=== PATIENT | female | born 1950 | race Caucasian/White ===

== ENCOUNTER → 2016-08-21 | Outpatient (CLI) | payer OTHER ==
--- NOTE | 2016-08-21 12:35 | US ---
Left Leg Varicose Vein Ultrasound Indication: Status post ablation of the right great saphenous system 2013. Evaluate left leg. Technique: Left leg ultrasound was performed by the hazmat cdl driver. FINDINGS: The great saphenous vein measures 3.6 mm proximally, 5.5 mm at the knee, 4.8 mm at the mid calf. Reflux is seen in the greater saphenous vein at the knee, down to the mid calf, measuring 3 sec onds. ALT is not present. The lesser saphenous vein is normal in size and does not reflux. IMPRESSION: 1. 3 seconds reflux seen in the great saphenous vein from knee to mid calf. 2. Sizes of the great saphenous vein as above.
== END ==
LOC: FIMAGING 07:19
PROVIDERS: ATTEND Surgery
DX: I83.892 Varicose veins of left lower extremity with other complications (principal)

== ENCOUNTER → 2016-09-11 | Outpatient (CLI) | payer OTHER ==
--- NOTE | 2016-09-11 10:01 | DX ---
Knee 3 Views Right History: Knee pain. Comparison exam: None available. Findings: Moderate medial compartment joint space narrowing. Lateral compartment is preserved. Advanc ed patellofemoral osteoarthritis is present with lateral patellar subluxation. 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
--- NOTE | 2016-09-11 10:01 | DX ---
Knee 3 Views Left History: Knee pain Comparison exam: None available. Findings: Mild medial compartment joint space narrowing. Advanced patellofemoral osteoarthritis with lateral patellar subluxation. No fracture or joint effusion. Impression: Advanced patellofemoral and mild medial compartment osteoarthritis.
== END ==
LOC: BMCIMAGING 09:17
PROVIDERS: ATTEND Orthopaedic Surgery
DX: M17.0 Bilateral primary osteoarthritis of knee (principal); M25.561 Pain in right knee; M25.562 Pain in left knee

== ENCOUNTER → 2016-10-29 | Outpatient (CLI) | payer OTHER | LOC: BMCIMAGING 10:56 | PROVIDERS: ATTEND Family Medicine | DX: S89.91XA Unspecified injury of right lower leg, initial encounter (principal); M25.461 Effusion, right knee; V00.891A Fall from other pedestrian conveyance, initial encounter ==

== ENCOUNTER → 2016-11-18 | Outpatient (CLI) | payer OTHER | LOC: BMCIMAGING 12:03 | PROVIDERS: ATTEND Internal Medicine | DX: Z01.810 Encounter for preprocedural cardiovascular examination (principal); R91.1 Solitary pulmonary nodule ==

== ENCOUNTER → 2016-11-27 | Outpatient (CLI) | payer OTHER | LOC: FIMAGING 09:38 | PROVIDERS: ATTEND Internal Medicine | DX: J98.4 Other disorders of lung (principal); I25.10 Atherosclerotic heart disease of native coronary artery without angina pectoris ==

== ENCOUNTER → 2016-12-08 | Outpatient (CLI) | payer OTHER | LOC: FIMAGING 15:01 | PROVIDERS: ATTEND Orthopaedic Surgery | DX: Z01.818 Encounter for other preprocedural examination (principal); M17.11 Unilateral primary osteoarthritis, right knee ==

== ENCOUNTER 2017-03-16 09:00 | Inpatient (IN) | payer OTHER ==
[2017-06-08] MEDS ORDERED: TRANEXAMIC ACID 900 MG in NS 100 ML IV ONE (06:00)
[2017-06-08] MEDS ORDERED: VANCOMYCIN HCL/NORMAL SALINE 250 ML IV ONE ×2 (06:00→22:00)
[2017-06-08] MEDS ORDERED: ROPIVACAINE 0.2% 80 MG, EPINEPHrine 0.2 MG, KETOROLAC TROMETHAMINE 30 MG, morphINE 10 M... IU ONE (06:00)
[2017-06-08] MEDS ORDERED: VANCOMYCIN PHARMACY TO DOSE MISC ONE (06:00)
--- NOTE | 2017-06-08 06:23 | PDHPUP ---
History & Physical Update H&P update statement: This history and physical update is based on an assessment of the patient which was completed after admission or registration (within 24 hours), but prior to the surgery/procedure.
--- NOTE | 2017-06-08 06:24 | PDIAF ---
- Diagnosis Diagnosis: right knee djd Code Status: Full Code - Medication Management Discharge Medications: Medications to Continue on Transfer Insulin Glargine [Lantus 100 UNITS/ML (*)] 9 units SQ HS 10/31/14 [Last Taken Unknown] Acetaminophen [Tylenol ES 500 mg (*)] 500 mg PO DAILY PRN 06/03/17 [Last Taken Unknown] Insulin Aspart [novoLOG] 10 - 11 unit SC TIDMEAL 06/03/17 [Last Taken Unknown] Discharge Medications: Refer to the Discharge Home Medication list for PRN reason. - Orders Services needed: Home Care, Physical Therapy Home Care Face to Face: I certify that this patient was under my care and that I had the required [id number] encounter meeting the encounter requirements on the discharge day. My findings support the fact that the patient is homebound as defined in Home Care Face to Face Continued: [facility] Chapter 7 Medicare Benefits Manual 30.1.1 , The condition of the patient is such that there exists a normal inability to leave home and consequently, leaving home would require a considerable and taxing effort. Activity/Weight Bearing Restrictions: wbat. rom as tolerated. daily dressing changes. no soaking or immersion. aspirin 325 mg po daily. f/u at two weeks. seek attn for increasing pain, cp , sob, leg pain, drainage, other focal complaints - Follow Up Care Current Providers and Referrals: Dory Kay MD [Primary Care Provider] -
--- NOTE | 2017-06-08 06:24 | PDIAF ---
- Diagnosis Diagnosis: right knee djd Code Status: Full Code - Medication Management Discharge Medications: Medications to Continue on Transfer Insulin Glargine [Lantus 100 UNITS/ML (*)] 9 units SQ HS 10/31/14 [Last Taken Unknown] Acetaminophen [Tylenol ES 500 mg (*)] 500 mg PO DAILY PRN 06/03/17 [Last Taken Unknown] Insulin Aspart [novoLOG] 10 - 11 unit SC TIDMEAL 06/03/17 [Last Taken Unknown] Discharge Medications: Refer to the Discharge Home Medication list for PRN reason. - Orders Services needed: Home Care, Physical Therapy Home Care Face to Face: I certify that this patient was under my care and that I had the required [id number] encounter meeting the encounter requirements on the discharge day. My findings support the fact that the patient is homebound as defined in Home Care Face to Face Continued: [facility] Chapter 7 Medicare Benefits Manual 30.1.1 , The condition of the patient is such that there exists a normal inability to leave home and consequently, leaving home would require a considerable and taxing effort. Activity/Weight Bearing Restrictions: wbat. rom as tolerated. daily dressing changes. no soaking or immersion. aspirin 325 mg po daily. f/u at two weeks. seek attn for increasing pain, cp , sob, leg pain, drainage, other focal complaints - Follow Up Care Current Providers and Referrals: Dory Kay MD [Primary Care Provider] -
--- NOTE | 2017-06-08 06:24 | PDIAF ---
- Diagnosis Diagnosis: right knee djd Code Status: Full Code - Medication Management Discharge Medications: Medications to Continue on Transfer Insulin Glargine [Lantus 100 UNITS/ML (*)] 9 units SQ HS 10/31/14 [Last Taken Unknown] Acetaminophen [Tylenol ES 500 mg (*)] 500 mg PO DAILY PRN 06/03/17 [Last Taken Unknown] Insulin Aspart [novoLOG] 10 - 11 unit SC TIDMEAL 06/03/17 [Last Taken Unknown] Discharge Medications: Refer to the Discharge Home Medication list for PRN reason. - Orders Services needed: Home Care, Physical Therapy Home Care Face to Face: I certify that this patient was under my care and that I had the required [id number] encounter meeting the encounter requirements on the discharge day. My findings support the fact that the patient is homebound as defined in Home Care Face to Face Continued: [facility] Chapter 7 Medicare Benefits Manual 30.1.1 , The condition of the patient is such that there exists a normal inability to leave home and consequently, leaving home would require a considerable and taxing effort. Activity/Weight Bearing Restrictions: wbat. rom as tolerated. daily dressing changes. no soaking or immersion. aspirin 325 mg po daily. f/u at two weeks. seek attn for increasing pain, cp , sob, leg pain, drainage, other focal complaints - Follow Up Care Current Providers and Referrals: Dory Kay MD [Primary Care Provider] -
[2017-06-08] MEDS ORDERED: ACETAMINOPHEN 325 MG TAB PO ONE (09:44)
[2017-06-08] MEDS ORDERED: FAMOTIDINE 20 MG TAB PO ONE (09:44)
[2017-06-08] MEDS ORDERED: LR 1,000 ML IV ONE (09:47)
[2017-06-08] MEDS ORDERED: ceFAZolin 1 GM/5 ML SYR ONE (09:52)
[2017-06-08] MEDS ORDERED: THROMBIN (BOVINE) 5,000 UNIT VIAL TP ONE (09:52)
[2017-06-08] MEDS ORDERED: CALCIUM CHLORIDE 1 GM/10 ML INJ ONE (09:52)
[2017-06-08] MEDS ORDERED: VANCOMYCIN 1 GM/NS 250 ML BAG IV ONE (10:03)
[2017-06-08] MEDS ORDERED: MIDAZOLAM 2 MG/2 ML VIAL IVP ONE (10:03)
--- NOTE | 2017-06-08 10:03 | PDANEPAE ---
ANE Past Medical History - Cardiovascular History Hx Hypertension: No Hx Arrhythmias: No Hx Chest Pain: No Hx Coronary Artery / Peripheral Vascular Disease: No Hx CHF / Valvular Disease: No Hx Palpitations: No - Pulmonary History Hx COPD: No Hx Asthma/Reactive Airway Disease: No Hx Recent Upper Respiratory Infection: No Hx Oxygen in Use at Home: No Hx Sleep Apnea: No Sleep Apnea Screening Result - Last Documented: Negative - Neurologic History Hx Cerebrovascular Accident: No Hx Seizures: No Hx Dementia: No - Endocrine History Hx Diabetes: Yes Hypothyroid: No Hyperthyroid: No Obesity: no Endocrine History Comment: insulin-requiring DM - Renal History Hx Renal Disorders: No - Liver History Hx Hepatic Disorders: No - Neurological & Psychiatric Hx Hx Neurological and Psychiatric Disorders: No - Cancer History Hx Cancer: No - Congenital Disorder History Hx Congenital Disorders: No - GI History GERD: no Hx Gastrointestinal Disorders: No - Other Health History Other Health History: wears reading glasses - Chronic Pain History Chronic Pain: Yes (right knee) - Surgical History Prior Surgeries: tonsillectomy ANE Review of Systems Review of Systems: - Exercise capacity Exercise capacity: limited by disability METS (RN): 4 METS ANE Patient History - Allergies Allergies/Adverse Reactions: Penicillins Allergy (Severe, Verified 06/04/17 14:30) Rash - Home Medications Home Medications: Insulin Glargine [Lantus 100 UNITS/ML (*)] 9 units SQ HS 10/31/14 [Last Taken 20:00] Acetaminophen [Tylenol ES 500 mg (*)] 500 mg PO DAILY PRN 06/03/17 [Last Taken 06/07/17 22:00] Insulin Aspart [novoLOG] 10 - 11 unit SC TIDMEAL 06/03/17 [Last Taken 06/07/17 19:30] - Anes Hx Anes Hx: no prior problems - Smoking Hx Smoking Status: Never smoked - Alcohol Use Alcohol Use: Occasionally - Family Anes Hx Family Anes Hx: neg - N/A Family Hx Anesthesia Complications: none ANE Labs/Vital Signs - Vital Signs Height: 171.45 cm Weight: 73.482 kg ANE Physical Exam - Airway Neck exam: FROM Mallampati Score: Class 2 Mouth exam: normal dental/mouth exam - Pulmonary Pulmonary: no respiratory distress, no rales or rhonchi, clear to auscultation - Cardiovascular Cardiovascular: regular rate and rhythym, no murmur, rub, or gallop - ASA Status ASA Status: II ANE Anesthesia Plan Anesthesia Plan: MAC, spinal Regional Anesthesia: adductor canal FNB
[2017-06-08] MEDS ORDERED: fentaNYL 100 MCG/2 ML INJ ONE (10:52)
[2017-06-08] MEDS ORDERED: PROPOFOL/EMULSION 500 MG/50 ML BOTTLE IV ONE (11:01)
[2017-06-08] MEDS ORDERED: LIDOCAINE 2% 5 ML SDV ONE ×2 (11:02)
[2017-06-08] MEDS ORDERED: PHENYLEPHRINE HCL 100 MCG/ML SYR ONE (11:22)
[2017-06-08] MEDS ORDERED: LR 500 ML IV PRN (12:10)
[2017-06-08] MEDS ORDERED: NALOXONE HCL 0.4 MG/ML INJ IVP PRN (12:10)
[2017-06-08] MEDS ORDERED: OXYCODONE/APAP 5/325 TAB PO PRN (12:10)
[2017-06-08] MEDS ORDERED: HYDROCODONE/APAP 5/325 TAB PO PRN (12:10)
[2017-06-08] MEDS ORDERED: ONDANSETRON 4 MG/2 ML VIAL IVP PRN ×2 (12:10→12:50)
[2017-06-08] MEDS ORDERED: MEPERIDINE 25 MG/ML SYR IVP PRN (12:10)
[2017-06-08] MEDS ORDERED: ACETAMINOPHEN 500 MG TAB PO PRN (12:10)
[2017-06-08] MEDS ORDERED: ROPIVACAINE HCL 150 MG/30 ML INJ ONE (12:34)
[2017-06-08] MEDS ORDERED: PROMETHAZINE HCL 25 MG SUPPR PR PRN (12:50)
[2017-06-08] MEDS ORDERED: DIAZEPAM 5 MG TAB PO PRN (12:50)
[2017-06-08] MEDS ORDERED: TEMAZEPAM 15 MG CAP PO PRN (12:50)
[2017-06-08] MEDS ORDERED: oxyCODONE IR 5 MG TAB PO PRN (12:50)
[2017-06-08] MEDS ORDERED: BISACODYL 10 MG SUPP PR PRN (12:50)
[2017-06-08] MEDS ORDERED: ONDANSETRON DISINTEGRATING 4 MG TAB PO PRN (12:50)
[2017-06-08] MEDS ORDERED: POLYETHYLENE GLYCOL 3350 17 GM PKT PO PRN (12:50)
[2017-06-08] MEDS ORDERED: diphenhydrAMINE 25 MG CAP PO PRN (12:50)
[2017-06-08] MEDS ORDERED: LACTULOSE 20 GM/30 ML UDCUP PO PRN (12:50)
[2017-06-08] MEDS ORDERED: DIPHENOXYLATE/ATROPINE LOMOTIL 1 TAB PO PRN (12:50)
[2017-06-08] MEDS ORDERED: MAGNESIUM HYDROXIDE 30 ML UDCUP PO PRN (12:50)
[2017-06-08] MEDS ORDERED: METOCLOPRAMIDE 10 MG/2 ML VIAL IVP PRN (12:50)
[2017-06-08] MEDS ORDERED: PROMETHAZINE HCL 25 MG/ML INJ IVP PRN (12:50)
[2017-06-08] MEDS ORDERED: LR 1,000 ML IV SCH (13:00)
--- NOTE | 2017-06-08 13:29 | POSTANESTH ---
Post Anesthetic Evaluation Cardiovascular Status: Normal, Stable Respiratory Status: Normal, Stable Level of Consciousness/Mental Status: Can Participate in Eval Pain Control: Adequate, Prn Tx Ordered Nausea/Vomiting Control: Adequate, Prn Tx Ordered Complications Possibly Related to Anesthesia: None Noted
[2017-06-08] MEDS: NON-FORMULARY NEW DRUG (Insulin Aspart [Novolog] 0 UNIT) SC SCH ×2 (16:13→19:20)
[2017-06-08] MEDS: TRANEXAMIC ACID 650 MG TAB PO SCH ×2 (16:17→22:48)
[2017-06-08] MEDS ORDERED: INSULIN GLARGINE SQ SCH (21:00)
[2017-06-08] MEDS: ACETAMINOPHEN 325 MG TAB PO SCH ×2 (22:47→22:49)
[2017-06-08] MEDS: FAMOTIDINE 20 MG TAB PO SCH (22:48)
[2017-06-08] MEDS: SENNOSIDES/DOCUSATE SODIUM TAB PO SCH (22:48)
[2017-06-08] MEDS: INSULIN GLARGINE HUM REC ANLOG 9 UNIT SQ SCH (22:51)
[2017-06-08] MEDS: ASPIRIN 325 MG TAB PO SCH (22:57)
[2017-06-09] MEDS: ACETAMINOPHEN 325 MG TAB PO SCH ×3 (05:00→17:48)
[2017-06-09] MEDS: TRANEXAMIC ACID 650 MG TAB PO SCH (05:01)
--- NOTE | 2017-06-09 07:38 | PDIAF ---
- Diagnosis Diagnosis: right knee djd Code Status: Full Code - Medication Management Discharge Medications: Medications to Continue on Transfer Acetaminophen [Tylenol ES 500 mg (*)] 500 mg PO DAILY PRN 06/03/17 [Last Taken 06/07/17 22:00] Insulin Aspart [novoLOG] 2 - 3 unit SC TIDMEAL 06/03/17 [Last Taken 06/07/17 19: 30] Insulin Glargine,Hum.rec.anlog [Lantus Solostar] 9 unit SQ HS 06/08/17 [Last Taken Unknown] Aspirin [Aspirin 325 mg (*)] 325 mg PO DAILY tab 06/09/17 [Last Taken Unknown] oxyCODONE IR [Oxycodone Ir (*)] 5 - 10 mg PO Q3HRS PRN #70 tab 06/09/17 [Last Taken Unknown] Discharge Medications: Refer to the Discharge Home Medication list for PRN reason. - Orders Services needed: Home Care, Physical Therapy Home Care Face to Face: I certify that this patient was under my care and that I had the required [id number] encounter meeting the encounter requirements on the discharge day. My findings support the fact that the patient is homebound as defined in Home Care Face to Face Continued: CMS Chapter 7 Medicare Benefits Manual 30.1.1 , The condition of the patient is such that there exists a normal inability to leave home and consequently, leaving home would require a considerable and taxing effort. Diet Recommendation: no restrictions on diet Diet Texture: Regular Texture Diet Activity/Weight Bearing Restrictions: wbat. rom as tolerated. daily dressing changes. no soaking or immersion. aspirin 325 mg po daily. f/u at two weeks. seek attn for increasing pain, cp , sob, leg pain, drainage, other focal complaints - Follow Up Care Current Providers and Referrals: Dory Kay MD [Primary Care Provider] -
--- NOTE | 2017-06-09 08:02 | GDS ---
[f rep st] DISCHARGE SUMMARY ADMITTING DIAGNOSIS: Right knee degenerative joint disease. DISCHARGE DIAGNOSIS: Right knee degenerative joint disease. PROCEDURE: Right total knee arthroplasty, MAKOplasty. OPERATIVE INDICATIONS: The patient is a 67-year-old woman with end-stage arthritis to her right knee . Clinical and radiographic features are consistent with this. She has failed all attempts at conse rvative management. I have, therefore, recommended total knee replacement. She understood the risks , benefits, and alternatives, and wished to proceed. Written consent was signed and placed in [facility]'s chart. HOSPITAL COURSE: The patient was admitted overnight after uncomplicated total knee arthroplasty. e tolerated the procedure well. Postoperative course was uneventful. At the time of discharge, she is tolerating an oral diet. Her pain is well controlled on oral medicines. She is voiding without difficulty. Dressing is clean, dr y, and intact. She has no calf swelling or tenderness. Negative Homans. X-rays are stable with norma tomic alignment. DISCHARGE ACTIVITY: She is weightbearing, range of motion as tolerated. Daily dressing changes. No soaking or immersion. May shower without the bandage. FOLLOWUP: Follow up at 2 weeks. Seek attention for increasing redness, swelling, drainage or discha rge. MEDICATIONS: Aspirin 325 mg p.o. daily for 6 weeks, Oxycodone 5 mg 1-2 every 4 hours p.r.n. pain. /[id number]/MODL
--- NOTE | 2017-06-09 08:02 | GDS ---
[f rep st] DISCHARGE SUMMARY ADMITTING DIAGNOSIS: Right knee degenerative joint disease. DISCHARGE DIAGNOSIS: Right knee degenerative joint disease. PROCEDURE: Right total knee arthroplasty, MAKOplasty. OPERATIVE INDICATIONS: The patient is a 67-year-old woman with end-stage arthritis to her right knee . Clinical and radiographic features are consistent with this. She has failed all attempts at conse rvative management. I have, therefore, recommended total knee replacement. She understood the risks , benefits, and alternatives, and wished to proceed. Written consent was signed and placed in [facility]'s chart. HOSPITAL COURSE: The patient was admitted overnight after uncomplicated total knee arthroplasty. e tolerated the procedure well. Postoperative course was uneventful. At the time of discharge, she is tolerating an oral diet. Her pain is well controlled on oral medicines. She is voiding without difficulty. Dressing is clean, dr y, and intact. She has no calf swelling or tenderness. Negative Homans. X-rays are stable with norma tomic alignment. DISCHARGE ACTIVITY: She is weightbearing, range of motion as tolerated. Daily dressing changes. No soaking or immersion. May shower without the bandage. FOLLOWUP: Follow up at 2 weeks. Seek attention for increasing redness, swelling, drainage or discha rge. MEDICATIONS: Aspirin 325 mg p.o. daily for 6 weeks, Oxycodone 5 mg 1-2 every 4 hours p.r.n. pain. /[id number]/MODL
--- NOTE | 2017-06-09 08:02 | GDS ---
[f rep st] DISCHARGE SUMMARY ADMITTING DIAGNOSIS: Right knee degenerative joint disease. DISCHARGE DIAGNOSIS: Right knee degenerative joint disease. PROCEDURE: Right total knee arthroplasty, MAKOplasty. OPERATIVE INDICATIONS: The patient is a 67-year-old woman with end-stage arthritis to her right knee . Clinical and radiographic features are consistent with this. She has failed all attempts at conse rvative management. I have, therefore, recommended total knee replacement. She understood the risks , benefits, and alternatives, and wished to proceed. Written consent was signed and placed in [facility]'s chart. HOSPITAL COURSE: The patient was admitted overnight after uncomplicated total knee arthroplasty. e tolerated the procedure well. Postoperative course was uneventful. At the time of discharge, she is tolerating an oral diet. Her pain is well controlled on oral medicines. She is voiding without difficulty. Dressing is clean, dr y, and intact. She has no calf swelling or tenderness. Negative Homans. X-rays are stable with norma tomic alignment. DISCHARGE ACTIVITY: She is weightbearing, range of motion as tolerated. Daily dressing changes. No soaking or immersion. May shower without the bandage. FOLLOWUP: Follow up at 2 weeks. Seek attention for increasing redness, swelling, drainage or discha rge. MEDICATIONS: Aspirin 325 mg p.o. daily for 6 weeks, Oxycodone 5 mg 1-2 every 4 hours p.r.n. pain. /[id number]/MODL
[2017-06-09] MEDS: SENNOSIDES/DOCUSATE SODIUM TAB PO SCH ×2 (09:27→20:25)
[2017-06-09] MEDS: FAMOTIDINE 20 MG TAB PO SCH ×2 (09:28→20:25)
[2017-06-09] MEDS: ASPIRIN 325 MG TAB PO SCH (09:28)
[2017-06-09] MEDS: NON-FORMULARY NEW DRUG (Insulin Aspart [Novolog] 0 UNIT) SC SCH ×3 (10:25→18:44)
--- NOTE | 2017-06-09 11:30 | CPEKG ---
Heart Rate: 64 RR Interval: 938 P-R Interval: 152 QRSD Interval: 86 QT Interval: 412 QTC Interval: 425 P [place]: 75 QRS [place]: 73 T Wave [place]: 58 EKG Severity - NORMAL ECG - EKG Impression: SINUS RHYTHM Electronically Signed By: Konrad Garza 09-Jun-2017 15:34:51
[2017-06-09] MEDS ORDERED: NS 1,000 ML IV ONE (11:46)
--- NOTE | 2017-06-09 11:52 | ASMTCMCOM ---
CM Note CM Note Notes: Patient is POD #[address] Bowie. She had a syncopal episode today while working with PT so she will remain inpatient and be assessed by hospital medicine service. Likely discharge tomorrow. Current discharge plan is home (with daughter support) with home care. Patient requested referral to [facility]; referral sent and pending. CM will follow. Date Signed: 06/09/2017 11:52 AM Electronically Signed By:Shira Marcial RN
[2017-06-09 12:01] LABS: PLATELET COUNT 283 10^3/uL (150-400)
--- NOTE | 2017-06-09 12:24 | GCON ---
[f rep st] CONSULTATION MEDICINE CONSULTATION DATE OF CONSULTATION: 06/09/2017 REASON FOR CONSULTATION: I responded to a code blue while the patient was in the therapy room. HISTORY: The patient is a 67-year-old female with a history of diabetes, who was admitted to the hospital June 08 for an elective right total knee arthroplasty secondary to end-stage arthritis. Her postop course was remarkable for 1 episode of lightheadedness when she got out of the tub the afternoon after surgery, and her systolic blood pressure at that time was noted to be in the 90s. She had an uneventful night. Then this morning she was working with therapy in the therapy room and went up some stairs. When she went back down the stairs, she began to feel lightheaded and then had a syncopal episode. She did not hit her head and denies head injury. She denies any preceding heart palpitations, chest pain or shortness of breath. She has no known history of cardiac disease or pulmonary problems. She is a lifetime nonsmoker. King avalos was called, and when I arrived, the patient was up in the chair. She appeared pale and faint, though was talking, had a pulse, and was moving air. She was placed in Trendelenburg position, and her blood pressure several minutes after her event was 104/58. Her pulse was noted to be in the 50s, though has recovered at this point into the 70s. A blood sugar at the bedside was 132. A stat EKG was performed and appeared nonischemic. Again, she did not complain of any chest pain or shortness of breath. Given her syncopal event , her discharge was canceled. Medicine was consulted, and she will be returned to her room on with a fluid bolus running and further workup as below. PAST MEDICAL/SURGICAL HISTORY: 1. Type 2 diabetes mellitus. 2. Severe arthritis of the right knee, status post right knee arthroplasty performed by Dr. Loyd Bowie. SOCIAL HISTORY: The patient lives independently. She is a lifetime nonsmoker. She denies alcohol or drug use. FAMILY HISTORY: Reviewed and noncontributory. REVIEW OF SYSTEMS: A 10-point review of systems was performed and is negative, except as per HPI. OBJECTIVE: VITAL SIGNS: Most recent vital signs, blood pressure is 126/65, heart rate 91, respiratory rate 18. She is 97% on room air. GENERAL: The patient is awake, alert and oriented, though appeared pale on initial evaluation. HEENT: Head is atraumatic, normocephalic. Pupils equal, round, reactive to light. Extraocular movements intact. Oropharynx is clear. Mucous members are moist. NECK: Supple. There is no JVD. HEART: Regular rate and rhythm, with a 2/6 systolic ejection murmur. LUNGS: Clear to auscultation bilaterally. ABDOMEN: Soft, nondistended, nontender, with normoactive bowel sounds. EXTREMITIES: Without cyanosis, clubbing, or edema, warm, well perfused , 2+ peripheral pulses. NEUROLOGIC: Cranial nerves 2 through 12 are intact. She moves all 4 extremities, 5/5 muscle strength in the upper and lower extremities bilaterally. There is no facial droop. Pronator drift is negative. EKG was personally reviewed and interpreted, shows normal sinus rhythm with no ST-segment or T-wave changes suggestive of ischemia. ASSESSMENT AND PLAN: The patient is a 67-year-old female who is postop day 1 from a total knee arthroplasty, who had a syncopal event while doing physical therapy. 1. Syncope. I suspect this is orthostatic related. Yesterday afternoon, postoperatively, she developed presyncopal symptoms and had a systolic blood pressure as low as 87. The patient's symptoms resolved in Trendelenburg. She was given a normal saline fluid bolus, and a repeat blood pressure is 126/65. A PE is also in the differential in a patient with postop syncope and hypotension. Will send a CBC, D-dimer, and a troponin. If her D-dimer is elevated, will consider CTPA to rule out PE. I will also obtain an echocardiogram to evaluate her LV function. Continue IV fluids and recheck orthostatic vital signs. I will also add on a morning cortisol and will monitor on telemetry overnight given her bradycardia, though I suspect her this was secondary to her vasovagal response from syncope. 2. Diabetes mellitus type 2. Her blood sugars have been well controlled. She will continue on her outpatient dose of basal bolus insulin. 3. Code status: Patient is full code. 4. Deep vein thrombosis prophylaxis. Per the ortho service, she is receiving full-dose aspirin. 5. Disposition: Discharge is canceled given her postop syncopal event. We will continue inpatient for now. She will likely be ready for discharge tomorrow after appropriate volume resuscitation. /[id number]/MODL MTDD
[2017-06-09] MEDS ORDERED: IOPAMIDOL (ISOVUE 370) 100 ML BTL IV ONE (15:19)
--- NOTE | 2017-06-09 16:31 | ECHO ---
[email or web address] [address] [address] Main: [phone] Fax: Transthoracic Echocardiogram Name: REX CHERRY MR#: [id number] Study Date: 06/09/2017 Study Time: 01:48 PM Date of : 1950 Age: 67 year(s) Height: 170.2 cm (67 in.) Weight: 73.48 kg (162 lb.) BSA: 1.85 m2 Gender: Female Examination: Echo Indication: Cardiac: syncope Image Quality: Contrast: Requested by: Tiffany Ortiz BP: 115 mmHg/76 mmHg Heart Rate: Rhythm: Indication: Cardiac: syncope Procedure Staff External Grinder: Kristel Collazo Reading Physician: Ezequiel Sanchez Requesting Provider: Conclusions: Normal size left ventricle. The ejection fraction is estimated to be 65-70 %. Trivial mitral valve regurgitation. The aortic valve is normal in appearance and function. Mild to moderate tricuspid valve regurgitation. Measurements: Chambers Valvular Assessment AV/MV Valvular Assessment TV/PV Normal Normal Normal Name Value Range Name Value Range Name Value Range Ao Елена (MM): 2.8 cm (2.2 cm-3.7 MV E Vmax: 0.70 m/s ( - ) TR Vmax: 2.51 mm/s ( - ) cm) MV A Vmax: 0.62 m/s ( - ) TR PGmax: 25 mmHg ( - ) IVSd (2D): 0.7 cm (0.6 cm-1.1 MV E/A: 1.13 ( - ) syst. PAP: 30 mmHg ( - ) cm) LVDd (2D): 4.6 cm (3.9 cm-5.3 cm) LVDs (2D): 2.8 cm (2.1 cm-4 cm) LVPWd (2D): 0.7 cm ( - ) LVEF (MOD4): 67 % (>=55 %) EF Range: 65-70 % Continued Measurements: Chambers Valvular Assessment TV/PV Name Value Name Value LADs: 3.5 cm CVP (est.): 5 mmHg LADs Lon.0 cm LA Area: 18.9 cm2 Patient: REX CHERRY Study Date: 06/09/2017 Page 1 of 2 01:48 PM Findings: Left Ventricle: Normal size left ventricle. No LV hypertrophy. Normal global systolic LV function. The ejection fraction is estimated to be 65-70 %. No regional wall motion abnormality. Normal diastolic LV function. Right Ventricle: Normal size right ventricle. Left Atrium: The left atrium is normal in size. Right Atrium: The right atrium is normal in size. Mitral Valve: The mitral valve is normal in appearance and function. Trivial mitral valve regurgitation. Aortic Valve: The aortic valve is normal in appearance and function. Tricuspid Valve: The tricuspid valve is normal in appearance and function. Mild to moderate tricuspid valve regurgitation. Pulmonic Valve: The pulmonic valve is normal in appearance and function. Aorta: The aorta is normal. Pericardium: No pericardial effusion. (No Signature Object) Patient: REX CHERRY Study Date: 06/09/2017 Page 2 of 2 01:48 PM [id number]
--- NOTE | 2017-06-09 16:31 | ECHO ---
[email or web address] [address] [address] Main: [phone] Fax: Transthoracic Echocardiogram Name: REX CHERRY MR#: [id number] Study Date: 06/09/2017 Study Time: 01:48 PM Date of : 1950 Age: 67 year(s) Height: 170.2 cm (67 in.) Weight: 73.48 kg (162 lb.) BSA: 1.85 m2 Gender: Female Examination: Echo Indication: Cardiac: syncope Image Quality: Contrast: Requested by: Tiffany Ortiz BP: 115 mmHg/76 mmHg Heart Rate: Rhythm: Indication: Cardiac: syncope Procedure Staff [employer] Lead: Kristel Collazo Reading Physician: Ezequiel Sanchez Requesting Provider: Conclusions: Normal size left ventricle. The ejection fraction is estimated to be 65-70 %. Trivial mitral valve regurgitation. The aortic valve is normal in appearance and function. Mild to moderate tricuspid valve regurgitation. Measurements: Chambers Valvular Assessment AV/MV Valvular Assessment TV/PV Normal Normal Normal Name Value Range Name Value Range Name Value Range Ao Елена (MM): 2.8 cm (2.2 cm-3.7 MV E Vmax: 0.70 m/s ( - ) TR Vmax: 2.51 mm/s ( - ) cm) MV A Vmax: 0.62 m/s ( - ) TR PGmax: 25 mmHg ( - ) IVSd (2D): 0.7 cm (0.6 cm-1.1 MV E/A: 1.13 ( - ) syst. PAP: 30 mmHg ( - ) cm) LVDd (2D): 4.6 cm (3.9 cm-5.3 cm) LVDs (2D): 2.8 cm (2.1 cm-4 cm) LVPWd (2D): 0.7 cm ( - ) LVEF (MOD4): 67 % (>=55 %) EF Range: 65-70 % Continued Measurements: Chambers Valvular Assessment TV/PV Name Value Name Value LADs: 3.5 cm CVP (est.): 5 mmHg LADs Lon.0 cm LA Area: 18.9 cm2 Patient: REX CHERRY Study Date: 06/09/2017 Page 1 of 2 01:48 PM Findings: Left Ventricle: Normal size left ventricle. No LV hypertrophy. Normal global systolic LV function. The ejection fraction is estimated to be 65-70 %. No regional wall motion abnormality. Normal diastolic LV function. Right Ventricle: Normal size right ventricle. Left Atrium: The left atrium is normal in size. Right Atrium: The right atrium is normal in size. Mitral Valve: The mitral valve is normal in appearance and function. Trivial mitral valve regurgitation. Aortic Valve: The aortic valve is normal in appearance and function. Tricuspid Valve: The tricuspid valve is normal in appearance and function. Mild to moderate tricuspid valve regurgitation. Pulmonic Valve: The pulmonic valve is normal in appearance and function. Aorta: The aorta is normal. Pericardium: No pericardial effusion. (No Signature Object) Patient: REX CHERRY Study Date: 06/09/2017 Page 2 of 2 01:48 PM [id number]
--- NOTE | 2017-06-09 16:31 | ECHO ---
[email or web address] [address] [address] Main: [phone] Fax: Transthoracic Echocardiogram Name: REX CHRERY MR#: [id number] Study Date: 06/09/2017 Study Time: 01:48 PM Date of : 1950 Age: 67 year(s) Height: 170.2 cm (67 in.) Weight: 73.48 kg (162 lb.) BSA: 1.85 m2 Gender: Female Examination: Echo Indication: Cardiac: syncope Image Quality: Contrast: Requested by: Tiffany Ortiz BP: 115 mmHg/76 mmHg Heart Rate: Rhythm: Indication: Cardiac: syncope Procedure Staff Instrumentation And Control Technician: Kristel Collazo Reading Physician: Ezequiel Sanchez Requesting Provider: Conclusions: Normal size left ventricle. The ejection fraction is estimated to be 65-70 %. Trivial mitral valve regurgitation. The aortic valve is normal in appearance and function. Mild to moderate tricuspid valve regurgitation. Measurements: Chambers Valvular Assessment AV/MV Valvular Assessment TV/PV Normal Normal Normal Name Value Range Name Value Range Name Value Range Ao Елена (MM): 2.8 cm (2.2 cm-3.7 MV E Vmax: 0.70 m/s ( - ) TR Vmax: 2.51 mm/s ( - ) cm) MV A Vmax: 0.62 m/s ( - ) TR PGmax: 25 mmHg ( - ) IVSd (2D): 0.7 cm (0.6 cm-1.1 MV E/A: 1.13 ( - ) syst. PAP: 30 mmHg ( - ) cm) LVDd (2D): 4.6 cm (3.9 cm-5.3 cm) LVDs (2D): 2.8 cm (2.1 cm-4 cm) LVPWd (2D): 0.7 cm ( - ) LVEF (MOD4): 67 % (>=55 %) EF Range: 65-70 % Continued Measurements: Chambers Valvular Assessment TV/PV Name Value Name Value LADs: 3.5 cm CVP (est.): 5 mmHg LADs Lon.0 cm LA Area: 18.9 cm2 Patient: REX CHERRY Study Date: 06/09/2017 Page 1 of 2 01:48 PM Findings: Left Ventricle: Normal size left ventricle. No LV hypertrophy. Normal global systolic LV function. The ejection fraction is estimated to be 65-70 %. No regional wall motion abnormality. Normal diastolic LV function. Right Ventricle: Normal size right ventricle. Left Atrium: The left atrium is normal in size. Right Atrium: The right atrium is normal in size. Mitral Valve: The mitral valve is normal in appearance and function. Trivial mitral valve regurgitation. Aortic Valve: The aortic valve is normal in appearance and function. Tricuspid Valve: The tricuspid valve is normal in appearance and function. Mild to moderate tricuspid valve regurgitation. Pulmonic Valve: The pulmonic valve is normal in appearance and function. Aorta: The aorta is normal. Pericardium: No pericardial effusion. (No Signature Object) Patient: REX CHERRY Study Date: 06/09/2017 Page 2 of 2 01:48 PM [id number]
[2017-06-09] MEDS: INSULIN GLARGINE HUM REC ANLOG 9 UNIT SQ SCH (20:26)
[2017-06-09] MEDS: traMADol 50 MG TAB PO PRN (21:36)
[2017-06-10] MEDS: ACETAMINOPHEN 325 MG TAB PO SCH ×3 (00:10→11:20)
[2017-06-10] MEDS: traMADol 50 MG TAB PO PRN ×2 (05:39→11:23)
--- NOTE | 2017-06-10 06:35 | SOAPPROG ---
SOAP Progress Note Assessment/Plan: Assessment: s/p right tka Plan: stable for d/c home appreciate hospitalist and cardiac input patient passed out yesterday with pt dvt precautions 06/10/17 06:33 Subjective: feels better today no cp or sob cecilia po no nausea or dizziness Objective: Vital Signs Temp Pulse Resp BP Pulse Ox 36.6 C 75 18 131/66 H 93 06/10/17 04:00 06/10/17 04:00 06/10/17 04:00 06/10/17 04:00 06/10/17 04:00 Laboratory Results 06/10/17 04:49 06/09/17 11:50 06/09/17 06/10/17 06/11/17 05:59 05:59 05:59 Intake Total 2100 1700 Output Total 100 Balance 2100 1600 dressing clean, dry, and intact intact pf,df,ehl toes warm and pink neg [place] xrays stable alignment no fx or lucency ICD10 Worksheet Patient Problems: Problems Problem Status Onset Arthritis of knee, right Acute - ICD10 Problem Qualifiers (1) Arthritis of knee, right
[2017-06-10 07:26] VITALS: RESP 19; TEMP 97.5; O2SAT 94
[2017-06-10] MEDS: NON-FORMULARY NEW DRUG (Insulin Aspart [Novolog] 0 UNIT) SC SCH (07:58)
[2017-06-10] MEDS: SENNOSIDES/DOCUSATE SODIUM TAB PO SCH (08:35)
[2017-06-10] MEDS: ASPIRIN 325 MG TAB PO SCH (08:35)
[2017-06-10] MEDS: FAMOTIDINE 20 MG TAB PO SCH (08:35)
--- NOTE | 2017-06-10 09:06 | HOSPPROG ---
Hospitalist Progress Note Assessment/Plan: Post-op syncope likely secondary to orthostasis plus opioid side effect - event occurred during PT just after receiving oxycodone, to which she notes being very sensitive. CTA neg for PE. Echo shows nl LV function. Trop neg x2. No further workup needed, but if she has recurrent episode, would recommend outpt cardiac event monitor. -changed oxycodone to tramadol, which has been effective S/P TKA - f/u with ortho Full code Dispo - d/c today per ortho service. Subjective: Pt feels well this am. No more pre-syncopal symptoms. No CP or SOB. Pain controlled with tylenol, tramadol. Ready to go home. Objective: Vital Signs Temp Pulse Resp BP Pulse Ox 36.4 C 76 19 122/64 H 94 06/10/17 07:26 06/10/17 07:26 06/10/17 07:26 06/10/17 07:26 06/10/17 07:26 Laboratory Results 06/10/17 04:49 06/09/17 11:50 06/09/17 06/10/17 06/11/17 05:59 05:59 05:59 Intake Total 2100 1700 Output Total 100 Balance 2100 1600 - Physical Exam Constitutional: no apparent distress Eyes: PERRL Ears, Nose, Mouth, Throat: moist mucous membranes Cardiovascular: regular rate and rhythym Respiratory: no respiratory distress, clear to auscultation Gastrointestinal: normoactive bowel sounds, soft, non-tender abdomen Skin: warm Musculoskeletal: full muscle strength Neurologic: AAOx3 Psychiatric: interacting appropriately ICD10 Worksheet Patient Problems: Problems Problem Status Onset Arthritis of knee, right Acute
[2017-06-10 09:55] VITALS: BP 104/51; PULSE 75
--- NOTE | 2017-06-10 14:20 | ASMTCMCOM ---
CM Note CM Note Notes: Pt medically stable for d/c with [facility], orders sent in [facility] and Shanita confirmed they accept. Date Signed: 06/10/2017 02:20 PM Electronically Signed By:CANDE Gomez
--- NOTE | 2017-06-10 14:21 | ASDISCHSUM ---
Discharge Information Plan Status:Home with Home Health Medically Cleared to Leave: Discharge Date:06/10/2017 11:56 AM CM D/C Disposition:Home Health Service ADT D/C Disposition:Home Health Service Projected Discharge Date:06/09/2017 02:00 PM Transportation at D/C: Discharge Delay Reason: Follow-Up Date:06/09/2017 02:00 PM Discharge Slot: Final Diagnosis: Placement Information Referral Type:*Home Health Care Services Referral ID:[id number] Provider Name:[facility] Address 1:[address] [address] Phone Number: Address 2: Fax Number: City:[place] Selection Factors: State:[place] Patient Contact Information Contact Name:DEANNE Relationship:Daughter Address: Work Phone: City: [facility] Phone: [facility] Code: Email: Financial Information Financial Class: Primary Plan Desc:MEDICARE INPATIENT Primary Plan Number:[id number] Secondary Plan Desc:GISELL PPO O [facility] LOC[facility] Secondary Plan Number:[id number] Assessment Information [facility] Progress Note CM Note CM Note Notes: Patient is POD #[address] Bowie. She had a syncopal episode today while working with PT so she will remain inpatient and be assessed by hospital medicine service. Likely discharge tomorrow. Current discharge plan is home (with daughter support) with home care. Patient requested referral to [employer]; referral sent and pending. CM will follow. Date Signed: 06/09/2017 11:52 AM Electronically Signed By:Shira Marcial RN [facility] CM Progress Note CM Note CM Note Notes: Pt medically stable for d/c with [facility], orders sent in [facility] and Shanita confirmed they accept. Date Signed: 06/10/2017 02:20 PM Electronically Signed By:CANDE Gomez Intervention Information Intervention Type:*IM-Signed Date of Service:06/10/2017 12:08 PM Patient Type:Inpatient Staff Member:Maria Eugenia Spencer Hours: Discipline: Severity: Comment:
--- NOTE | 2017-06-10 14:21 | ASDISCHSUM ---
Discharge Information Plan Status:Home with Home Health Medically Cleared to Leave: Discharge Date:06/10/2017 11:56 AM CM D/C Disposition:Home Health Service ADT D/C Disposition:Home Health Service Projected Discharge Date:06/09/2017 02:00 PM Transportation at D/C: Discharge Delay Reason: Follow-Up Date:06/09/2017 02:00 PM Discharge Slot: Final Diagnosis: Placement Information Referral Type:*Home Health Care Services Referral ID:[id number] Provider Name:[facility] Address 1:[address] [address] Phone Number: Address 2: Fax Number: City:[place] Selection Factors: State:[place] Patient Contact Information Contact Name:DEANNE Relationship:Daughter Address: Work Phone: City: [facility] Phone: [facility] Code: Email: Financial Information Financial Class: Primary Plan Desc:MEDICARE INPATIENT Primary Plan Number:[id number] Secondary Plan Desc:GISELL PPO O OPEN [facility] LOCAL Secondary Plan Number:[id number] Assessment Information [facility] Progress Note CM Note CM Note Notes: Patient is POD #[address] Bowie. She had a syncopal episode today while working with PT so she will remain inpatient and be assessed by hospital medicine service. Likely discharge tomorrow. Current discharge plan is home (with daughter support) with home care. Patient requested referral to [employer] [email or web address]; referral sent and pending. CM will follow. Date Signed: 06/09/2017 11:52 AM Electronically Signed By:Shira Marcial RN [facility] CM Progress Note CM Note CM Note Notes: Pt medically stable for d/c with [facility], orders sent in [facility] and Shanita confirmed they accept. Date Signed: 06/10/2017 02:20 PM Electronically Signed By:CANDE Gomez Intervention Information Intervention Type:*IM-Signed Date of Service:06/10/2017 12:08 PM Patient Type:Inpatient Staff Member:Maria Eugenia Spencer Hours: Discipline: Severity: Comment:
--- NOTE | 2017-06-10 14:21 | ASDISCHSUM ---
Discharge Information Plan Status:Home with Home Health Medically Cleared to Leave: Discharge Date:06/10/2017 11:56 AM CM D/C Disposition:Home Health Service ADT D/C Disposition:Home Health Service Projected Discharge Date:06/09/2017 02:00 PM Transportation at D/C: Discharge Delay Reason: Follow-Up Date:06/09/2017 02:00 PM Discharge Slot: Final Diagnosis: Placement Information Referral Type:*Home Health Care Services Referral ID:[id number] Provider Name:[facility] Address 1:[address] [address] Phone Number: Address 2: Fax Number: City:[place] Selection Factors: State:[place] Patient Contact Information Contact Name:DEANNE Relationship:Daughter Address: Work Phone: City: [facility] Phone: [facility] Code: Email: Financial Information Financial Class: Primary Plan Desc:MEDICARE INPATIENT Primary Plan Number:[id number] Secondary Plan Desc:GISELL PPO O OPEN [facility] LOCAL Secondary Plan Number:[id number] Assessment Information [facility] Progress Note CM Note CM Note Notes: Patient is POD #[address] Bowie. She had a syncopal episode today while working with PT so she will remain inpatient and be assessed by hospital medicine service. Likely discharge tomorrow. Current discharge plan is home (with daughter support) with home care. Patient requested referral to [employer] [facility] [employer]; referral sent and pending. CM will follow. Date Signed: 06/09/2017 11:52 AM Electronically Signed By:Shira Marcial RN [facility] CM Progress Note CM Note CM Note Notes: Pt medically stable for d/c with [facility], orders sent in [facility] and Shanita confirmed they accept. Date Signed: 06/10/2017 02:20 PM Electronically Signed By:CANDE Gomez Intervention Information Intervention Type:*IM-Signed Date of Service:06/10/2017 12:08 PM Patient Type:Inpatient Staff Member:Maria Eugenia Spencer Hours: Discipline: Severity: Comment:
--- NOTE | 2017-06-13 08:36 | GOP ---
[f rep st] OPERATIVE REPORT DATE OF OPERATION: 06/08/2017 SURGEON: Loyd Bowie MD DEVULCANIZER TENDER: Rafal Vargas, PHARMACY COORDINATOR, WORKERS COMPENSATION CLAIMS SPECIALIST who was a medical necessity for the entirety of the case. PREOPERATIVE DIAGNOSIS: Right knee degenerative joint disease. POSTOPERATIVE DIAGNOSIS: Right knee degenerative joint disease. PROCEDURE PERFORMED: Right total knee arthroplasty, MAKOplasty. FINDINGS: SPECIMENS: To Pathology, the bony cuts. DESCRIPTION OF PROCEDURE: The patient was identified in the preanesthesia area. The right knee andrzej rly demarcated as the operative site with indelible marker. She was given 2 g of Ancef intravenously en route to the operative suite. In the OR, a spinal anesthetic was placed followed by additional s edation per Anesthesia. She was positioned in the supine position. All bony prominences were well p added. The right knee and lower extremity were sterilely prepped and draped in the usual fashion. A tourniquet was applied to the upper thigh. Appropriate time-out procedure had been carried out. Th e limb was then exsanguinated with an Esmarch bandage. Tourniquet inflated to 275 mmHg. A standard anterior midline incision was made over the knee, carried sharply through the skin and subcutaneous t issue. Thick subcutaneous flaps were elevated. Examination of the knee revealed tricompartmental ar thritis. Decision was made to proceed with total knee replacement. Additional percutaneous incision was made over the mid femur and mid reeder, and the tibial reference array and femoral reference array were affixed per the MAKOplasty protocol. The subperiosteal elevation was carried out to the mid co fermin plane on the knee, and retractors were placed. The knee was brought into a flexed position. T he femoral and tibial checkpoints were then placed, and the bony landmarks entered into the computer. Minimal additional soft tissue release and balancing of the components was required. Using the VERONICA Oplasty robot, the femoral and tibial cuts were then made. The bony fragments were withdrawn. Using a size 5 femoral block, this was affixed to the distal surface of the femur, and the trochlear cut m stef. Trial reduction with the femoral and tibial components was carried out, felt to be stable and a ppropriate. Size 4 tibial tray was then pinned in the correct orientation and positioned, and the ce ntral fins were then cut. Trial reduction was carried out, and the knee would come to full extension and flexion without instability throughout the flexion-extension arc. The patella was then everted and cut in a freehand cutting technique. Drill holes were made for a size 32 all poly patella. Tria l components were all withdrawn in sequential fashion after copious irrigation over all the bony surf aces. The tibial, femoral and patellar components were then cemented in the usual fashion over a fin al 4 x 9 mm polyethylene thick spacer. This was confirmed to be fully seated. Once the cement had f ully cured, the margins were instilled with a joint cocktail of ropivacaine, morphine, Toradol, and e pinephrine. The medial parapatellar arthrotomy closed with the knee in 20 degrees of flexion with #1 Ethibond suture. The knee instilled with platelet-rich plasma solution. Subcutaneous tissue closed using 0 Vicryl, 0 Quill suture equivalent. The skin was stapled. A sterile dressing was applied fo llowed by a Cryo/Cuff, and the patient was awakened, extubated, and taken to the recovery room in goo d, stable condition. OPERATIVE INDICATIONS: The patient is a 67-year-old woman with end-stage arthritis to her right knee . Clinical and radiographic features are consistent with this. She has failed all attempts at conse rvative management. I have therefore recommended total knee replacement. She understood the risks, benefits, alternatives, and wished to proceed. Written consent was signed and placed in the patient' s chart. TOTAL TOURNIQUET TIME: 65 minutes. COMPLICATIONS: None. IMPLANTS: The Latricia Triathlon PS knee size 5, Trident X3 asymmetric patella A32, Triathlon X3 tibi al bearing insert size 4 x 9 mm, size 4 tibial base plate. Copy requested to: Primary Care Physician /[id number]/MODL
== END 2017-06-10 11:56 | disposition home health service (06) | DRG 470 ==
LOC: F3N 06-08 09:10
PROVIDERS: ADMIT Orthopaedic Surgery; ATTEND Orthopaedic Surgery
DX: M17.11 Unilateral primary osteoarthritis, right knee (principal); E11.9 Type 2 diabetes mellitus without complications; R55 Syncope and collapse; Z79.4 Long term (current) use of insulin
CPT/HCPCS: 97110-GP; 97116-GP; 97161-GP; 97165-GO; C1713; G8978-GP-CJ; G8979-GP-CI; G8987-GO-CI; G8988-GO-CI; G8989-GO-CI; J0171; J1885; J2250; J2370; J2704; J2795; J3010; J3370; Q9967

== ENCOUNTER → 2017-07-21 | Outpatient (CLI) | payer OTHER | LOC: BMCIMAGING 13:58 | PROVIDERS: ATTEND Physician Assistant | DX: Z47.1 Aftercare following joint replacement surgery (principal); Z96.651 Presence of right artificial knee joint ==

== ENCOUNTER → 2017-09-09 | Outpatient (CLI) | payer OTHER | LOC: BMCIMAGING 11:10 | PROVIDERS: ATTEND Physician Assistant | DX: Z47.1 Aftercare following joint replacement surgery (principal); Z96.641 Presence of right artificial hip joint ==

== ENCOUNTER → 2017-12-02 | Outpatient (CLI) | payer OTHER | LOC: BMCIMAGING 10:29 | PROVIDERS: ATTEND Orthopaedic Surgery | DX: Z47.1 Aftercare following joint replacement surgery (principal); Z96.651 Presence of right artificial knee joint ==

== ENCOUNTER → 2018-06-09 | Outpatient (CLI) | payer OTHER | LOC: BMCIMAGING 10:45 | PROVIDERS: ATTEND Orthopaedic Surgery | DX: Z47.1 Aftercare following joint replacement surgery (principal); Z96.651 Presence of right artificial knee joint; M25.461 Effusion, right knee ==

== ENCOUNTER → 2018-12-29 | Outpatient (CLI) | payer OTHER, MEDICARE | LOC: BMCIMAGING 11:02 ==